=== PATIENT | female | born 1945 | race Caucasian/White ===

== ENCOUNTER 2016-10-04 12:27 | Emergency (ER) | payer OTHER, MEDICAID ==
[~2016-10-04] VITALS: Ht 149.9 cm; Wt 140.0 kg
[2016-10-04 12:33] VITALS: Ht 149.9 cm; Wt 140.0 kg
[2016-10-04] MEDS ORDERED: KETOROLAC 30 MG INJ IM STA (12:44)
--- NOTE | 2016-10-04 13:58 | RADRPT ---
PROCEDURE: XR Lumbar Spine. CLINICAL INDICATION: Back pain. TECHNIQUE: Three views. AP, lateral and cone-down lateral view of the lumbar spine were obtained. COMPARISON: No prior studies are available for comparison. FINDINGS: There is grade 1 anterolisthesis at L5-S1. Alignment is otherwise normal. There is no fracture. There is no lytic or blastic lesion. There are degenerative changes with disk space narrowing, hypertrophy of the facet joints, and osteo phytes at L4-5 and L5-S1. Vascular calcifications consistent with atherosclerosis are present in the aorta. IMPRESSION: 1. Grade 1 anterolisthesis at L5-S1. 2. Degenerative changes at L4-5 and L5-S1. 3. Atherosclerosis. RPTAT: QQ .Garo Mcgarry MD, Date Time Electronically viewed and signed by .Garo Mcgarry MD, on 10/04/2016 13:58 .R/
[2016-10-04] MEDS ORDERED: METH500T PO (14:18)
[2016-10-04] MEDS ORDERED: TRAM50TA2 PO (14:18)
--- NOTE | 2016-10-04 15:50 | ERD ---
ER Documentation Chief Complaint Date/Time DATE: 10/04/16 TIME: 15:47 Chief Complaint LOWER BACK PAIN HPI 71-year-old female presents with low back pain for the last 2 days. History significant for recent bunion surgery and for which she feels is due to walking awkwardly due to her right foot pain. She is taking Vicodin and Bactrim electively for surgery. She denies any inciting events that she denies any urinary complaints, fevers, vomiting, bowel or bladder incontinence. ROS All systems reviewed and are negative except as per history of present illness. Medications Home Meds Active Scripts Methocarbamol* (Robaxin*) 500 Mg Tab, 500 MG PO Q6, #15 TAB Prov:DIANA ROBERTSON MD 10/04/16 Tramadol HCl (Tramadol HCl) 50 Mg Tablet, 50 MG PO Q4 Y for PAIN, #15 TAB Prov:DIANA ROBERTSON MD 10/04/16 PMhx/Soc History of Surgery: Yes (RT FOOT, BLADDER PROLAPSE REPAIR, HYSTERECTOMY) Anesthesia Reaction: No Hx Neurological Disorder: No Hx Respiratory Disorders: No Hx Cardiac Disorders: No Hx Psychiatric Problems: No Hx Miscellaneous Medical Probl: No Hx Alcohol Use: No Hx Substance Use: No Hx Tobacco Use: No Smoking Status: Never smoker Physical Exam Vitals Vital Signs Date Time Temp Pulse Resp B/P Pulse Ox O2 Delivery O2 Flow Rate FiO2 10/04/16 12:33 100.4 85 18 120/62 96 Physical Exam Const: [] Alert, [id number]. Head: Atraumatic Eyes: Normal Conjunctiva ENT: Normal External Ears, Nose and Mouth. Neck: Full range of motion..~ No meningismus. Resp: Clear to auscultation bilaterally Cardio: Regular rate and rhythm, no murmurs Abd: Soft, non tender, non distended. Normal bowel sounds Skin: No petechiae or rashes Back: No midline or flank tenderness. There is some tenderness primarily in the right L2-L3 area without midline tenderness or deformities. Ext: No cyanosis, or edema Neur: Awake and alert. No appreciable weakness. Patient has antalgic gait due to recent right foot surgery. No appreciable focal neurologic deficits. Psych: Normal Mood and Affect Results 24 hrs Current Medications Medications (Trade) Dose Ordered Sig/Tye Route PRN Reason Start Time Stop Time Status Last Admin Dose Admin Ketorolac Tromethamine (Toradol) 30 mg ONCE STAT IM 10/04/16 12:44 10/04/16 12:45 DC 10/04/16 12:53 Procedures/MDM X-ray LS-Spine 3V Interpreted by me: Bones: [No fracture] Joints: [No dislocation] Foreign body: [None]. Impression have degenerative changes lumbar spine. Patient was given Toradol 30 mg IM. Patient presents with low back pain without history of trauma and no evidence of neurologic deficit, signs of UTI, bacterial infection, epidural abscess, cauda equina syndrome additional emergent causes of low back pain. She will be treated with tramadol and Robaxin instructions for back exercises and primary care follow-up. She should return for new or worsening symptoms of back pain as directed after instructions with primary care doctor this week. Departure Diagnosis: Primary Impression: Back pain Condition: Stable Patient Instructions: Back Exercises, Lumbar, Back Pain (Acute Or Chronic) Additional Instructions: NO ACUTE FINDINGS ON X RAY. RECHECK WITH PRIMARY DOCTOR OR FOR NEW/ WORSENING SYMPTOMS. DIANA ROBERTSON MD Oct 04, 2016 15:49
== END 2016-10-04 14:33 | disposition home or self-care (01) ==
LOC: FTE 12:27
DX: M54.5 Low back pain (principal)
CPT/HCPCS: 72100; 96372; 99284; J1885